=== PATIENT | female | born 1960 | race Caucasian/White ===

== ENCOUNTER → 2017-12-03 16:50 | Outpatient (CLI) | payer SELFPAY ==
[~2017-12-03 16:50] MED LIST: BUPROPION HCL150 M1 PO; CRESTOR5 MG PO
[2018-01-09 08:25] VITALS: BMI 27.5
== END | disposition home or self-care (01) ==
LOC: D.LABREF 16:50
DX: R31.9 Hematuria, unspecified (principal); N39.0 Urinary tract infection, site not specified

== ENCOUNTER → 2017-12-24 07:32 | Outpatient (CLI) | payer OTHER ==
[2018-01-09 08:25] VITALS: BMI 27.5
== END | disposition home or self-care (01) ==
LOC: D.CT 07:32
DX: R31.21 Asymptomatic microscopic hematuria (principal)

== ENCOUNTER 2018-01-09 06:41 | Outpatient (CLI) | payer MEDICAID ==
[~2018-01-09] VITALS: Ht 165.1 cm; Wt 74.8 kg
--- NOTE | ~2018-01-09 | HEMODYNAMI ---
PATIENT:CHEL GIRON MEDICAL RECORD: [id number] : 58 [id number] ADMISSION DATE: 01/09/18 Generatedon:01/09/201810:23 Patient name: CHEL GIRON Patient #: [id number] SSN: : 1960 Date of study: 01/09/2018 Page: Of Hemodynamic Procedure Report Patient Data Patient Demographics Procedure consent was obtained First Name: CHEL Gender: Female Last Name: DANIELLE ESQUIVEL : 1960 Middle Initial: FEROZ Age: 57 year(s) Patient #: [id number] Race: Unknown Additional ID: [id number] Contact details Address: [address] [place] [address] State: [place] City: [place] Zip code: [address] Past Medical History Allergies: No known allergies Admission Admission Data Admission Date: 01/09/2018 Admission Time: 6:41 Procedure Procedure Types Cath Procedure Peripheral Cath Diagnostic Procedure Miscellaneous Procedure Description Procedure Date Procedure Date: 01/09/2018 Procedure Start Time: 9:59 Procedure Staff Name Function Prakash Holder MD Performing Physician Mercy Hernandez RT Monitor Patricia Malcolm RN Nurse Josafat Bettencourt RT Scrub Procedure Data Cath Procedure Fluoroscopy Diagnostic fluoroscopy Total fluoroscopy Time: 1.5 time: 1.5 min min Diagnostic fluoroscopy Total fluoroscopy dose: 357 dose: 357 mGy mGy Contrast Material Contrast Material Type Amount (ml) Isovue 300 65 Entry Location Entry Primary Successful Side Size Upsize Upsize Entry Closure Succes sful Closure Location (Fr) 1 (Fr) 2 (Fr) Remarks Device Remarks Femoral Exoseal artery Procedure Medications Medication Administration Route Dosage Heparin Flush Bag added to field 3 bags (1000units/500ml NS) Lidocaine 1% added to field 20 Oxygen NC 3 l/min Versed I.V. 2 mg Fentanyl I.V. 100 mcg Versed I.V. 1 mg Fentanyl I.V. 50 mcg Hemodynamics Rest Heart Rate: 73 (bpm) Snapshots Pre Cath Intra NCS Post Cath Vital Signs Time Heart Resp SPO2 etCO2 NIBP (mmHg) Rhythm Pain Sedation Rate (ipm) (%) (mmHg) Status Level (bpm) 9:55:28 72 7 100 23.3 158/88(111) NSR 0 (11) 10(A) , No pain 9:59:50 75 10 99 31.6 147/92(123) NSR 0 (11) 10(A) , No pain 10:04:12 70 14 91 20.3 131/78(101) NSR 0 (11) 10(A) , No pain 10:08:30 72 22 87 19.5 125/72(97) NSR 0 (11) 8(A) , No pain 10:12:40 74 8 93 16.5 115/73(87) NSR 0 (11) 8(A) , No pain 10:16:52 73 10 92 34.6 121/72(86) NSR 0 (11) 8(A) , No pain 10:21:04 78 14 96 32.4 138/83(111) NSR 0 (11) 9(A) , No pain Medications Time Medication Route Dose Verified Delivered Reason Notes Effec tiveness by by 10:00:45 Heparin Flush added 3bags Prakash Randall used for Bag to Holder Holder procedure (1000units/500ml field MD NOEL NS) 10:00:58 Lidocaine 1% added 20ml Prakash Randall used for to vial Holder Holder procedure field MD NOEL 10:01:15 Oxygen NC 3 Prakash Gomez used for 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 2 mg Prakash Gomez for Holder Gold RN sedation 10:01:36 Fentanyl I.V. 100 Prakash Oswaldody for mcg Holder Gold RN sedation 10:04:05 Versed I.V. 1 mg Prakash Gomez for Holder Gold RN sedation 10:04:12 Fentanyl I.V. 50 Prakash Gomez for mcg Holder Gold RN sedation Procedure Log Time Note 9:40:20 Josafat Bettencourt RT (R) (CV) sent for patient. Start room use. 9:40:30 Time tracking: Regular hours (M-F 7:00 - 5:00) 9:40:36 Plan of Care:Hemodynamics will remain stable., Cardiac rhythm will remain stable., Comfort level will be maintained., Respiratory function will remain adequate., Patient/ family verbilizes understanding of procedure., Procedure tolerated without complication., Recovers from procedure without complications.. 9:40:42 Patient received from Outpatients to IR Alert and oriented. Tansferred to table in Supine position. 9:40:44 Correct patient and procedure confirmed by team. 9:40:46 Signed procedure consent form obtained from patient. 9:40:48 ECG and BP/O2 sat monitors applied to patient. 9:40:48 Full Disclosure recording started 9:40:49 - 9:40:53 H&P Date Dictated: 01/09/2018 H&P Addendum completed by physician on day of procedure. (MUST COMPLETE FOR ALL OUTPATIENTS). 9:40:54 Pre-procedure instructions explained to patient. 9:40:54 Pre-op teaching completed and patient verbalized understanding. 9:40:57 Family in waiting room. 9:41:03 Patient NPO since Midnight. 9:41:09 Is the patient allergic to Iodine/contrast media? No. 9:41:10 Is patient on blood thinner?No 9:41:12 Patient diabetic? No. 9:41:13 - 9:41:14 ----Pre-sedation anethsthesia assessment.---- 9:41:16 Previous problem with sedation/anesthesia? No ? 9:41:17 Snore? No 9:41:18 Sleep apnea? No 9:41:20 Deviated septum? No 9:41:20 Opens mouth fully? Yes 9:41:21 Sticks out tongue? Yes 9:41:25 Airway obstruction? No ? 9:41:26 Dentures? No ? 9:41:27 - 9:41:33 Use device set IR Diagnostic 9:41:34 [employer] Syringe (11188) opened to sterile field. 9:41:35 [employer] Hand Control (34134) opened to sterile field. 9:41:35 ACIST Manifold (51849) opened to sterile field. 9:41:36 Bag Decanter () opened to sterile field. 9:41:36 Sterile Angiographic Pack opened to sterile field. 9:41:36 Tegaderm 4 x 4 (1626W) opened to sterile field. 9:41:46 Patient pain scale 0/10 no pain. 9:41:52 IV patent on arrival in left hand with 0.9% NaCl at KVO. 9:53:49 - 9:53:51 DOC .035 wire ([id number]) opened to sterile field. 9:53:52 SHEATH 5FR Media (FCT830) opened to sterile field. 9:53:52 PERCUTANEOUS ENTRY 19GA needle opened to sterile field. 9:53:53 SHEATH 5FR Media (SAZ263) opened to sterile field. 9:53:54 TUBING Contrast Injection High Pressure ([id number]) opened to sterile field. 9:54:09 Vital chart was started 9:54:12 Baseline sample Acquired. 9:54:18 - 9:54:33 Patient allergic to No known allergies 9:55:14 Pre procedure: right dorsailis pedis pulse 2+ Normal; easily identifiable; not easily obliterated 9:55:21 Pre procedure: right posterior tibial pulse 2+ Normal; easily identifiable; not easily obliterated 9:55:29 Right groin area was prepped with chlora-prep and draped in sterile fashion 9:58:06 Physician arrived 9:59:04 GLIDE CATHETER 5FR COBRA 65cm (CG502) opened to sterile field. 9:59:19 --------ALL STOP TIME OUT------ :59:20 Final Timeout: patient, procedure, and site verified with staff and physician. All members of the team are in agreement. 9:59:50 Procedure started. 9:59:54 Local anesthetic to right femoral artery with Lidocaine 1% by Prakash Holder MD.INITIAL ACCESS ONLY 10:00:45 Heparin Flush Bag (1000units/500ml NS) 3bags added to field was administered by Prakash Holder MD; used for procedure; 10:00:58 Lidocaine 1% 20ml vial added to field was administered by Prakash Holder MD; used for procedure; 10:01:15 Oxygen 3 l/min NC was administered by Patricia Malcolm RN; used for procedure; 10:01:26 Versed 2 mg I.V. was administered by Patricia Malcolm RN; for sedation; 10:01:36 Fentanyl 100 mcg I.V. was administered by Patricia Malcolm RN; for sedation; 10:04:05 Versed 1 mg I.V. was administered by Patricia Malcolm RN; for sedation; 10:04:12 Fentanyl 50 mcg I.V. was administered by Patricia Malcolm RN; for sedation ; 10:08:16 Angiography was performed. 10::41 A sheath was inserted into the Femoral artery ::41 Sheath removed intact; hemostasis achieved with Exoseal to the Femoral artery. 10:08:58 EXOSEAL 5Fr (EX500) opened to sterile field. 10:09:29 Procedure ended.(Physican Out) 10:10:21 Fluoroscopy time 01.50 minutes. 10:10:30 Fluoroscopy dose: 357 mGy 10:10:30 Flurop Dose total: 357 10:10:38 Contrast amount:Isovue 300 65ml. 10:10:42 Procedure and supply charges have been captured, reviewed, submitted an d are correct. 10:23:08 Report given to Outpatients. 10:23:13 Patient transfered to Outpatients with Stretcher. 10:23:36 Vital chart was stopped Device Usage Item Name Manufacture Quantity Catalog Hospital Part Current Minimal Lot# / Number Charge Number Stock Stock Serial# Code ACIST Acist 1 [id number] 230965 006720 [id number] 20 Syringe Medical (83845) Systems Inc ACIST Hand Acist 1 75546 714584 646148 229590 5 Control Medical (41810) Systems Inc ACIST Acist 1 37483 767507 459937 293839 5 Manifold Medical (21484) Systems Inc Bag Decanter Microtek 1 2002S 974966 02258 689329 5 (2001S) Medical Inc. Sterile Cardinal 1 [id number] 754601 922464 5 Angiographic Health Pack Tegaderm 4 x 3M 1 1626W 293039 508787 429402 5 4 (1626W) DOC .035 [employer] 1 Y15915 807013 023544 5 wire (D26695) SHEATH 5FR Terumo 2 WRJ294 374089 919499 753254 40 Media (GUL027) PERCUTANEOUS [employer] 1 C77199 677305 608005 5 1626945 ENTRY 19GA needle TUBING Merit 1 [id number] 923935 193060 761290 5 [id number] Contrast Medical Injection High Pressure ([id number]) GLIDE Terumo 1 CG502 756270 019610 5 CATHETER 5FR COBRA 65cm (CG502) EXOSEAL 5Fr Cardinal 1 EX500 418631 948351 402845 10 [id number] (EX500) Health Signature Audit [place] Stage Time Signature Unsigned Intra-Procedure 01/09/2018 Mercy Hernandez 10:23:33 AM RT(R) Signatures Monitor : Mercy Hernandez RT Signature : Date : Time : [facility] [address] [place] [address]
[2018-01-09] MEDS ORDERED: BUPROPION HCL150 M1 PO (08:08)
[2018-01-09] MEDS ORDERED: CRESTOR5 MG PO (08:08)
[2018-01-09 08:14] LABS: BASOPHILS 0.5 % (0-2); EOSINOPHILS 2.7 % (0-7); HEMOGLOBIN 13.9 g/dL (12-16); IMMATURE GRANULOCYTES 0.2 % (0-5); LYMPHOCYTES 39.4 % (15-50); MCH 30.3 pg (26.0-34.0); MCHC 33.1 g/dL (31.0-37.0); MCV 91.7 fL (80.0-100.0); MEAN PLATELET VOLUME 9.8 fL (7.4-10.4); MONOCYTES 7.8 % (2-11); NEUTROPHILS 49.4 % (40-80); PLATELET COUNT 221 10x3/uL (130-400); RBC 4.58 10x6/uL (4.00-5.40); RDW 12.5 % (11.5-14.5); WBC 5.7 10x3/uL (4.8-10.8)
[2018-01-09 08:25] VITALS: BP 118/75; Ht 165.1 cm; Wt 74.8 kg
[2018-01-09 08:29] LABS: ANION GAP 11.5 mmol/L (8-16); CALCIUM 9.1 mg/dL (8.5-10.1); CARBON DIOXIDE 27.9 mmol/L (21.0-32.0); POTASSIUM - SERUM 4.4 mmol/L (3.5-5.1)
[2018-01-09 08:38] LABS: APTT 29.3 SECONDS (22.8-39.4); INR 0.94 (0.85-1.17); PROTIME 12.2 SECONDS (11.6-15.0)
== END 2018-01-09 14:30 | disposition home or self-care (01) ==
LOC: D.SP 06:41 → D.RAD 09:00 → D.SP 09:00
PROVIDERS: Specialist
DX: I72.2 Aneurysm of renal artery (principal); N39.41 Urge incontinence; Z01.812 Encounter for preprocedural laboratory examination

== ENCOUNTER → 2018-12-30 10:37 | Outpatient (CLI) | payer MEDICAID ==
[2018-01-09 08:25] VITALS: BMI 27.5
== END | disposition home or self-care (01) ==
LOC: D.CT 10:30
PROVIDERS: ATTEND Specialist
DX: I72.2 Aneurysm of renal artery (principal)

== ENCOUNTER → 2020-01-26 08:45 | Outpatient (CLI) | payer MEDICAID ==
[2018-01-09 08:25] VITALS: BMI 27.5
== END | disposition home or self-care (01) ==
LOC: D.CT 08:30
PROVIDERS: ATTEND Specialist
DX: I72.2 Aneurysm of renal artery (principal); N28.1 Cyst of kidney, acquired

== ENCOUNTER → 2020-03-25 09:14 | Outpatient (CLI) | payer MEDICAID ==
[2018-01-09 08:25] VITALS: BMI 27.5
== END | disposition home or self-care (01) ==
LOC: D.LAB 09:14
PROVIDERS: ATTEND Allergy & Immunology
DX: T78.49XA Other allergy, initial encounter (principal)